=== PATIENT | male | born 1995 | race African-American/Black ===

== ENCOUNTER 2022-03-22 13:41 | Emergency (ER) | payer SELFPAY ==
[2022-03-22] MEDS ORDERED: NA CHLORIDE 0.9% 1,000 ML ONE ×2 (14:39→16:19)
[2022-03-22] MEDS ORDERED: ONDANSETRON 4 MG/2 ML VIAL ONE (14:39)
[2022-03-22] MEDS ORDERED: FAMOTIDINE 20 MG/2 ML VIAL IV ONE (14:39)
[2022-03-22 14:44] LABS: Absolute Lymphocytes (CBC) 0.9 K/uL (0.7-4.9); Hematocrit 49.9 % (39.6-49.0); Lymphocytes % 6.8 % (15.3-44.8); MCV 86.2 fL (80-100); MPV 8.2 fL (7.6-11.3); RBC Red Blood Cell Count 5.78 M/uL (4.33-5.43)
[2022-03-22 14:47] LABS: Albumin 4.7 g/dL (3.4-5.0); Bilirubin Total 0.6 mg/dL (0.2-1.0); Potassium 3.7 mmol/L (3.5-5.1); Protein, Total 9.5 g/dL (6.4-8.2)
--- NOTE | 2022-03-22 15:32 | RAD REPORT ---
EXAM DESCRIPTION: CTAbdomen Pelvis W Contrast - 03/22/2022 3:24 pm CLINICAL HISTORY: Abdominal pain. Abdominal pain, acute, nonlocalized COMPARISON: No comparisons TECHNIQUE: Biphasic CT imaging of the abdomen and pelvis was performed with 100 ml non-ionic IV cont rast. All CT scans are performed using dose optimization technique as appropriate and may include automated exposure control or mA/KV adjustment according to patient size. FINDINGS: The lung bases are clear. The liver, spleen, pancreas, adrenal glands and kidneys are within normal limits. No bowel obstruction, free air, free fluid or abscess. The appendix is normal. No evidence of signi ficant lymphadenopathy. No suspicious bony findings. IMPRESSION: No acute intra-abdominal or pelvic finding.
[2022-03-22 16:49] LABS: Urine Blood 1+ (Negative); Urine Glucose Negative (Negative); Urine Protein 1+ (Negative); Urine Specific Gravity 1.015 (1.005-1.030)
[2022-03-22 17:15] LABS: Urine Bacteria <20 /HPF (<20); Urine RBC <5 /HPF (None Seen)
--- NOTE | 2022-03-22 17:18 | EDPHYS ---
Physician Documentation [facility] Name: Alexsander Agustin Age: 26 yrs Sex: Male : 1995 Arrival Date: 03/22/2022 Time: 13:45 Bed DIS1 Private MD: ED Physician Don Mcdaniel HPI: 03/22 14:03 This 26 yrs old Black Male presents to ER via Unassigned with complaints of Abdominal ms3 Pain, dehydration. 14:03 The patient presents with abdominal pain in the lower abdomen. Onset: The ms3 symptoms/episode began/occurred acutely, 2 day(s) ago. The symptoms do not radiate. Associated signs and symptoms: Pertinent positives: nausea and vomiting. The symptoms are described as crampy. Modifying factors: The symptoms are alleviated by nothing, the symptoms are aggravated by nothing. Severity of pain: At its worst the pain was moderate in the emergency department the pain is unchanged. Historical: - Allergies: 14:05 No Known Allergies; bm7 - Home Meds: 14:05 None [Active]; bm7 - PMHx: 14:05 None; bm7 - PSHx: 14:05 None; bm7 - Immunization history:: Adult Immunizations up to date. - Social history:: Smoking status: Patient/guardian denies using tobacco products. ROS: 14:03 Constitutional: Negative for fever, and chills. Cardiovascular: Negative for chest ms3 pain, and palpitations. Respiratory: Negative for shortness of breath, cough, wheezing, and pleuritic chest pain, MS/Extremity: Negative for injury and deformity, Skin: Negative for injury, rash, and discoloration. 14:03 Abdomen/GI: Positive for nausea and vomiting. 14:03 All other systems are negative. Exam: 14:03 Constitutional: This is a well developed, well nourished patient who is awake, alert, ms3 and in no acute distress. Head/Face: Normocephalic, atraumatic. Neck: Trachea midline, no cervical lymphadenopathy. Supple, full range of motion without nuchal rigidity, or vertebral point tenderness. No Meningismus. Chest/axilla: Normal chest wall appearance and motion. Nontender with no deformity. Cardiovascular: Regular rate and rhythm with a normal S1 and S2. No gallops, murmurs, or rubs. Normal PMI, no JVD. No pulse deficits. Respiratory: Lungs have equal breath sounds bilaterally, clear to auscultation and percussion. No rales, rhonchi or wheezes noted. No increased work of breathing, no retractions or nasal flaring. 14:03 Abdomen/GI: Inspection: abdomen appears normal, Bowel sounds: normal, Palpation: moderate abdominal tenderness, in the right lower quadrant and left lower quadrant. Vital Signs: 14:02 BP 123 / 96; Pulse 68; Resp 16; Temp 98.2(TE); Pulse Ox 100% on R/A; Weight 61.23 kg bm7 (M); Height 5 ft. 6 in. (167.64 cm); Pain 8/10; 14:02 Body Mass Index 21.79 (61.23 kg, 167.64 cm) bm7 MDM: 14:03 Differential diagnosis: appendicitis, bowel obstruction, diverticulitis, non-specific ms3 abd pain. 14:08 Patient medically screened. ms3 17:18 Data reviewed: vital signs, nurses notes, lab test result(s), radiologic studies, and ms3 as a result, I will discharge patient. Counseling: I had a detailed discussion with the patient and/or guardian regarding: the historical points, exam findings, and any diagnostic results supporting the discharge/admit diagnosis, lab results, radiology results, the need for outpatient follow up, to return to the emergency department if symptoms worsen or persist or if there are any questions or concerns that arise at home. Special discussion: Discussed elevated Cr with patient and necessity for follow up to ensure Cr returns to normal.. 17:18 ED course: Discussed labs, CT , PE findings with patient. Patient to follow up with Dr fatemeh Louise in 2-3 days. Patient understands/ agrees with plan. All questions answered. Return precautions given to include worsening symptoms, or any other concerns. Patient is improved, in NAD, non-toxic appearing, ambulatory in ED, speaking full sentences, tolerating po.. 03/22 14:03 Order name: CBC with Diff; Complete Time: 15:53 ms3 03/22 14:03 Order name: CMP; Complete Time: 15:53 ms3 03/22 14:03 Order name: Lipase; Complete Time: 15:53 ms3 03/22 14:03 Order name: Urine Microscopic Only; Complete Time: 17:16 ms3 08/11 14:03 Order name: CT Abd/Pelvis - IV Contrast Only; Complete Time: 15:53 ms3 03/22 16:50 Order name: Urine Dipstick-Ancillary; Complete Time: 17:10 EDMS 03/22 14:03 Order name: IV Saline Lock; Complete Time: 14:29 ms3 03/22 14:03 Order name: Labs collected and sent; Complete Time: 14:29 ms3 03/22 14:03 Order name: Urine Dipstick-Ancillary (obtain specimen); Complete Time: 16:22 ms3 03/22 16:28 Order name: PO challenge; Complete Time: 17:03 ms3 Administered Medications: 14:30 Drug: NS 0.9% 1000 ml Route: IV; Rate: 1 bolus; Site: left antecubital; iw 14:30 Drug: Pepcid (famotidine) 20 mg Route: IVP; Site: left antecubital; iw 14:30 Drug: Zofran (Ondansetron) 4 mg Route: IVP; Site: left antecubital; iw 16:22 Drug: NS 0.9% 1000 ml Route: IV; Rate: 1000 ml; Site: right antecubital; iw Disposition Summary: 03/22/22 17:18 Discharge Ordered Location: Home ms3 Problem: new ms3 Symptoms: have improved ms3 Condition: Stable ms3 Diagnosis - Nausea with vomiting, unspecified ms3 - Flank pain ms3 - Renal Insufficiency ms3 - Dehydration ms3 Followup: ms3 - With: Dmitri Louise DO - When: 2 - 3 days - Reason: Recheck today's complaints Discharge Instructions: - Discharge Summary Sheet ms3 - Nausea and Vomiting, Adult ms3 - Dehydration, Adult, [id number] ms3 Forms: - Medication Reconciliation Form ms3 - Work release form iw - Thank You Letter ms3 - Antibiotic Education ms3 - Prescription Opioid Use ms3 Prescriptions: - Zofran 4 mg Oral Tablet - take 1 tablet by ORAL route every 12 hours As needed; 20 tablet; Refills: 0, ms3 Product Selection Permitted Signatures: Dispatcher [employer] Melissa Abdullahi RN RN iw Don Mcdaniel DO DO ms3 Esperanza Dalton RN RN bm7 Corrections: (The following items were deleted from the chart) 21:50 21:47 Data reviewed: vital signs, nurses notes, lab test result(s), radiologic studies, ms3 and as a result, I will discharge patient, ms3 :47 Counseling: I had a detailed discussion with the patient and/or guardian ms3 regarding: the historical points, exam findings, and any diagnostic results supporting the discharge/admit diagnosis, lab results, radiology results, the need for outpatient follow up, to return to the emergency department if symptoms worsen or persist or if there are any questions or concerns that arise at home, ms3 :47 Special discussion: Discussed elevated Cr with patient and necessity for follow ms3 up to ensure Cr returns to normal.. ms3
--- NOTE | 2022-03-22 17:18 | ER ---
Nurse's Notes [facility] Name: Alexsander Agustin Age: 26 yrs Sex: Male : 1995 Arrival Date: 03/22/2022 Time: 13:45 Bed DIS1 Private MD: Diagnosis: Nausea with vomiting, unspecified;Flank pain;Renal Insufficiency;Dehydration Presentation: 03/22 14:02 Chief complaint: Patient states: I think I have food poisoning from a [place] [employer] restaurant that I ate at two days ago. Coronavirus screen: At this time, the client does not indicate any symptoms associated with coronavirus-19. Ebola Screen: No symptoms or risks identified at this time. Initial Sepsis Screen: Does the patient meet any 2 criteria? No. Patient's initial sepsis screen is negative. Does the patient have a suspected source of infection? No. Patient's initial sepsis screen is negative. Risk Assessment: Do you want to hurt yourself or someone else? Patient reports no desire to harm self or others. Onset of symptoms was April 20, 2022. 14:02 Method Of Arrival: Ambulatory [facility] 14:02 Acuity: IZZY 3 bm7 Triage Assessment: 14:05 General: Appears in no apparent distress. uncomfortable, well groomed, well developed, 7 Behavior is calm, cooperative, appropriate for age. Pain: Complains of pain in left lower quadrant Pain does not radiate. Pain currently is 8 out of 10 on a pain scale. EENT: No deficits noted. No signs and/or symptoms were reported regarding the EENT system. Neuro: No deficits noted. Cardiovascular: No deficits noted. Respiratory: No deficits noted. GI: Abdomen is round Bowel sounds present X 4 quads. Abd is soft X 4 quads Abdomen is tender to palpation in right lower quadrant and left lower quadrant Reports nausea, vomiting. : No deficits noted. No signs and/or symptoms were reported regarding the genitourinary system. Derm: No deficits noted. No signs and/or symptoms reported regarding the dermatologic system. Musculoskeletal: No deficits noted. No signs and/or symptoms reported regarding the musculoskeletal system. Historical: - Allergies: 14:05 No Known Allergies; bm7 - Home Meds: 14:05 None [Active]; bm7 - PMHx: 14:05 None; bm7 - PSHx: 14:05 None; bm7 - Immunization history:: Adult Immunizations up to date. - Social history:: Smoking status: Patient/guardian denies using tobacco products. Vital Signs: 14:02 BP 123 / 96; Pulse 68; Resp 16; Temp 98.2(TE); Pulse Ox 100% on R/A; Weight 61.23 kg bm7 (M); Height 5 ft. 6 in. (167.64 cm); Pain 8/10; 14:02 Body Mass Index 21.79 (61.23 kg, 167.64 cm) bm7 ED Course: 13:45 Patient arrived in ED. as 13:46 Don Mcdaniel DO is Attending Physician. ms3 14:05 Triage completed. bm7 14:05 Arm band placed on right wrist. bm7 14:19 Melissa Carpio, RN is Primary Nurse. iw 15:26 CT Abd/Pelvis - IV Contrast Only In Process Unspecified. EDMS 17:17 Dmitri Louise DO is Referral Physician. ms3 Administered Medications: 14:30 Drug: NS 0.9% 1000 ml Route: IV; Rate: 1 bolus; Site: left antecubital; iw 14:30 Drug: Pepcid (famotidine) 20 mg Route: IVP; Site: left antecubital; iw 14:30 Drug: Zofran (Ondansetron) 4 mg Route: IVP; Site: left antecubital; iw 16:22 Drug: NS 0.9% 1000 ml Route: IV; Rate: 1000 ml; Site: right antecubital; iw Outcome: 17:18 Discharge ordered by MD. ms3 17:42 Patient left the ED. iw Signatures: Dispatcher [employer] EDMS Kiera Saunders as Melissa Carpio, RN RN iw Don Mcdaniel DO DO ms3 Esperanza Dalton RN RN 7
[2022-03-22 19:14] VITALS: BP 123/96; TEMP 98.2; O2SAT 100
== END 2022-03-22 17:42 | disposition home or self-care (01) ==
LOC: ER 13:41
DX: E86.0 Dehydration (principal); R10.9 Unspecified abdominal pain; N28.9 Disorder of kidney and ureter, unspecified
CPT/HCPCS: 36415; 74177; 80053; 81003; 81015; 83690; 85025; 96374; 96375; 99283; J2405; J7030; Q9967